=== PATIENT | male | born 1990 | race Caucasian/White ===

== ENCOUNTER → 2020-04-17 08:51 | Outpatient (BNVA) | payer BC, SELFPAY | PROVIDERS: PCP Nurse Practitioner Family; Visit Provider Urology | DX: Z76.89 Persons encountering health services in other specified circumstances (principal) ==

== ENCOUNTER 2020-08-04 08:24 | Outpatient (REF) | payer BC, SELFPAY ==
[2020-08-04 12:21] LABS: Alanine Aminotransferase 9 U/L (0-40); Albumin Level 4.7 g/dL (3.5-5.0); Alkaline Phosphatase 35 U/L (39-117); Anion Gap 12 (12-20); Aspartate Amino Transferase 16 U/L (5-37); Bilirubin Total 0.5 mg/dL (0.0-1.0); Blood Urea Nitrogen 14 mg/dL (9-16); Calcium 9.4 mg/dL (8.4-10.2); Carbon Dioxide 32 mmol/L (22-29); Chloride 104 mmol/L (96-108); Cholesterol 167 mg/dL; Estimated Glomerular Filt Rate > 60; Glucose Fasting 78 mg/dL (60-99); HDL Cholesterol 41 mg/dL; LDL Cholesterol Calculated 107 mg/dl; Potassium 4.9 mmol/L (3.3-5.1); Sodium 143 mmol/L (135-145); Total Protein 7.5 g/dL (6.5-8.0); Triglycerides 95 mg/dL
[2020-08-04 12:28] LABS: TSH reflex Free T4 1.82 uIU/mL (0.32-4.0)
== END 2020-08-04 08:25 | disposition home or self-care (01) ==
LOC: HO.HMGCLDS 08:24
PROVIDERS: PCP Nurse Practitioner Family; Visit Provider Nurse Practitioner Family
DX: Z00.00 Encounter for general adult medical examination without abnormal findings (principal)
CPT/HCPCS: 36415; 80053; 80061; 84443

== ENCOUNTER 2020-10-17 13:24 | Outpatient (REF) | payer BC, SELFPAY ==
[2020-10-17 16:33] LABS: MANUAL DIFF FLAG NO
[2020-10-17 16:36] LABS: Basophils Percent Auto 0.3 % (0-2); Eosinophils Absolute Auto 0.1 X10*3/uL (0.0-0.4); Eosinophils Percent Auto 0.7 % (0-4); Hematocrit 43.7 % (42-52); Hemoglobin 14.5 g/dl (14.0-18.0); Imm Gran Abs Auto 0.02 X10*3/uL (0.00-0.03); Imm Gran Pct Auto 0.3 % (0.0-0.4); Lymphocytes Absolute Auto 2.8 X10*3/uL (1.2-4.9); Lymphocytes Percent Auto 38.1 % (20-40); Mean Corpuscular HGB Conc 33.2 g/dl (31.0-36.0); Mean Corpuscular Hemoglobin 29.7 pg (27.0-33.0); Mean Corpuscular Volume 89.5 fL (80-98); Mean Platelet Volume 12.3 fL (9.4-12.4); Monocytes Absolute Auto 0.7 X10*3/uL (0.1-1.2); Monocytes Percent Auto 9.3 % (2-11); Neutrophils Absolute Auto 3.8 X10*3/uL (2.0-8.3); Neutrophils Percent Auto 51.3 % (45-73); Platelet Count 188 X10*3/uL (160-400); Red Blood Count 4.88 X10*6/uL (4.60-5.80); Red Cell Distribution Width 12.2 % (11.0-16.0); White Blood Count 7.3 X10*3/uL (4.8-10.8)
== END 2020-10-17 13:25 | disposition home or self-care (01) ==
LOC: HO.HMGCLDS 13:24
PROVIDERS: Visit Provider Nurse Practitioner Family
DX: R22.1 Localized swelling, mass and lump, neck (principal)
CPT/HCPCS: 36415; 85025

== ENCOUNTER 2021-12-21 14:08 | Outpatient (REF) | payer BC, SELFPAY ==
--- NOTE | ~2021-12-21 | XR_ITS ---
EXAMINATION: CERVICAL SPINE 3 VIEWS CLINICAL INFORMATION: Cervicalgia. COMPARISON: None. TECHNIQUE: Frontal, lateral and odontoid views are obtained. FINDINGS: Vertebral body heights are normal. There is mild reversal of the normal lordotic curvature. The disc spaces are well-maintained. No acute fracture or spondylolisthesis is seen. The posterior elements are intact. There is no prevertebral soft tissue swelling. The dens and C7-T1 interface are normal. XR/XR cervical spine 3V IMPRESSION: 1. There is mild reversal of the normal lordotic curvature, which can be associated with muscle spasm. 2. No acute fracture or spondylolisthesis is seen. 3. The cervical disc spaces are well-maintained.
== END 2021-12-21 14:09 | disposition home or self-care (01) ==
LOC: HO.HMGCX 14:08
PROVIDERS: PCP Nurse Practitioner Family; Visit Provider Nurse Practitioner Family
DX: M54.2 Cervicalgia (principal)
CPT/HCPCS: 72040

== ENCOUNTER 2022-02-08 16:00 | Outpatient (RCR) | payer BC, SELFPAY ==
--- NOTE | 2022-01-01 15:16 | MHC.PT.EP ---
[facility] [place] Office [place] Office [place] Office [address] Cristóbal Baron [address] [phone] F: [phone] F: [phone] F: [phone] F: [phone] Physical Therapy Plan of Care Date of Evaluation: Date of Surgery: n/a Diagnosis: cervicalgia Assessment: Patient is a 31 year old male presenting to PT with complaints of pain in his neck. Pt reports onset of pain began about 10 years ago due to diving into a tube and forcing his neck into extension. He presents today with impairments in pain, ROM, DNF strength, muscle tightness, and posture. 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 Pt expresses mcc goal of reducing pain, and is motivated to work towards this in PT. Clinical presentation today is most consistent with signs and sx associated with neck pain with likely myofascial component and pt will benefit from skilled PT to address the following problems and impairments noted upon evaluation: pain, ROM, DNF strength, muscle tightness, and posture. These problems limit the patient with the following functional activities: sitting, lifting, turning his head. The prescribed treatment plan of care is medically necessary. Co-morbidities of none were identified and taken into considerations of plan of care. Pt was educated on HEP, role of PT, prognosis, POC. Frequency and Duration: The patient will be seen 2 x week x 4 weeks Short Term Goals: Pt will demonstrate ability to recruit DNF in supine x 5 sec without shaking in 2 weeks. Pt will demonstrate cervical AROM in available range with min to no pain in 2 weeks. Pt will demonstrate improved postural awareness by sitting with biomechanically correct posture without cues throughout session to improve overall postural function in 2 weeks. [facility] Goals: Pt will demonstrate improved NDI score to <5% disability in 4 weeks for improved functional mobility. Pt will demonstrate ability to lift 20# with min to no pain in 4 weeks for improved role at home and in community. Pt will demonstrate ability to sit with min to no pain in 4 weeks for improved QOL and tolerance to work. Treatment Plan: Modalities to reduce pain, spasms and effusion. Manual therapy to restore motion and function. Therapeutic exercise to improve strength and flexibility. Neuromuscular re-education for posture and balance. Therapeutic activities to return to functional activities of daily living. Electronically signed by: Aubree Webber PT, DPT, ATC Please sign and return to therapist. Thank you for your referral.
--- NOTE | 2022-02-08 16:50 | MHC.PT.DC ---
[facility] [place] Office [place] Office [place] Office [address] Cristóbal Baron [address] [phone] F: [phone] F: [phone] F: [phone] F: [phone] Physical Therapy Discharge Report Diagnosis: cervicalgia Date of Surgery: n/a Date of Evaluation: 01/01/22 Date of Discharge: 02/08/22 Treatments to Date: 8 Cancellations to Date: 0 No Shows to Date: 0 Discharge Status: Independent with HEP Recommend MD Follow-up Discharge Summary: Pt has made minimal improvement since start of care but appears to have reached a plateau. He really does not feel relief with any interventions to this point. He still has pain when positioning his head in certain positions and this has not changed much. He is more aware of things that cause him pain and thus avoids these positions and activities and leaving him with functional limitations. A variety of treatment interventions have been trialed unsuccessfully. At this point max benefits of PT have been provided and skilled PT is no longer indicated at this time. 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 Pt is in agreement with today's plan and d/c. Electronically signed by: Aubree Webber, PT, DPT, ATC Please sign and return to therapist. Thank you for your referral.
== END 2022-02-08 16:51 | disposition home or self-care (01) ==
LOC: HO.PTCHIC 16:00
PROVIDERS: PCP Nurse Practitioner Family; Visit Provider Nurse Practitioner Family
DX: M54.2 Cervicalgia (principal)
CPT/HCPCS: 97110; 97140; 97161

== ENCOUNTER 2022-07-26 08:17 | Outpatient (REF) | payer BC, SELFPAY ==
--- NOTE | ~2022-07-26 | XR_ITS ---
EXAMINATION: XR ANKLE, RIGHT XR FOOT, RIGHT CLINICAL INFORMATION: Pain joints right ankle and foot. COMPARISON: None TECHNIQUE: Right ankle is imaged in 2 views. The right foot is imaged in 2 views. A lateral view of the combined right ankle and foot is also included for a total of 5 views. FINDINGS: The right ankle shows no fracture or dislocation or arthropathy. The malleoli are intact and the ankle mortise is symmetric. The talar dome shows no osteochondral lesion. There is no ankle capsular effusion. The retrocalcaneal recess is preserved. The subtalar joint is unremarkable. The midfoot and forefoot shows no fracture or dislocation or arthropathy. No focal joint narrowing or erosive changes. XR/XR ankle RT 2V IMPRESSION: Unremarkable right ankle, right foot.
--- NOTE | ~2022-07-26 | XR_ITS ---
EXAMINATION: XR ANKLE, RIGHT XR FOOT, RIGHT CLINICAL INFORMATION: Pain joints right ankle and foot. COMPARISON: None TECHNIQUE: Right ankle is imaged in 2 views. The right foot is imaged in 2 views. A lateral view of the combined right ankle and foot is also included for a total of 5 views. FINDINGS: The right ankle shows no fracture or dislocation or arthropathy. The malleoli are intact and the ankle mortise is symmetric. The talar dome shows no osteochondral lesion. There is no ankle capsular effusion. The retrocalcaneal recess is preserved. The subtalar joint is unremarkable. The midfoot and forefoot shows no fracture or dislocation or arthropathy. No focal joint narrowing or erosive changes. XR/XR foot RT 2V IMPRESSION: Unremarkable right ankle, right foot.
[2022-07-26 11:33] LABS: Appearance Urine Clear; Color Urine Yellow; Glucose Urine UA Negative (Negative); Leukocyte Esterase Urine Negative (Negative); Nitrite Urine Negative (Negative); PH 5.5 (5.0-9.0); Urine Blood Negative (Negative); Urine Ketones Negative (Negative); Urine Protein Negative (Neg-Trace)
[2022-07-26 11:37] LABS: MANUAL DIFF FLAG NO
[2022-07-26 11:57] LABS: Basophils Percent Auto 0.3 % (0-2); Eosinophils Absolute Auto 0.1 X10*3/uL (0.0-0.4); Eosinophils Percent Auto 1.2 % (0-4); Hematocrit 44.8 % (42.0-52.0); Hemoglobin 14.8 g/dl (14.0-18.0); Imm Gran Abs Auto 0.01 X10*3/uL (0.00-0.03); Imm Gran Pct Auto 0.2 % (0.0-0.4); Lymphocytes Absolute Auto 3.2 X10*3/uL (1.2-4.9); Lymphocytes Percent Auto 54.2 % (20-40); Mean Corpuscular Hemoglobin 29.1 pg (27.0-33.0); Mean Corpuscular Volume 88.2 fL (80.0-98.0); Mean Platelet Volume 12.1 fL (9.4-12.4); Monocytes Absolute Auto 0.4 X10*3/uL (0.1-1.2); Neutrophils Absolute Auto 2.2 x10*3/uL (2.0-8.3); Neutrophils Percent Auto 37.1 % (45-73); Platelet Count 195 X10*3/uL (160-400); Red Blood Count 5.08 X10*6/uL (4.60-5.80); Red Cell Distribution Width 12.4 % (11.0-16.0)
[2022-07-26 14:03] LABS: Alanine Aminotransferase 11 U/L (0-40); Albumin Level 4.5 g/dL (3.5-5.0); Alkaline Phosphatase 50 U/L (39-117); Anion Gap 12 (12-20); Aspartate Amino Transferase 18 U/L (5-37); Bilirubin Total 0.4 mg/dL (0.0-1.0); Blood Urea Nitrogen 13 mg/dL (9-16); Calcium 9.7 mg/dL (8.4-10.2); Carbon Dioxide 30 mmol/L (22-29); Chloride 105 mmol/L (96-108); Cholesterol 207 mg/dL; Estimated Glomerular Filt Rate > 60; Glucose Fasting 86 mg/dL (60-99); HDL Cholesterol 36 mg/dL; LDL Cholesterol Calculated 142 mg/dl; Potassium 4.6 mmol/L (3.3-5.1); Sodium 142 mmol/L (135-145); Total Protein 7.4 g/dL (6.5-8.0); Triglycerides 147 mg/dL
== END 2022-07-26 08:18 | disposition home or self-care (01) ==
LOC: HO.HMGCX 08:17
PROVIDERS: PCP Nurse Practitioner Family; Visit Provider Nurse Practitioner Family
DX: Z00.00 Encounter for general adult medical examination without abnormal findings (principal); M25.571 Pain in right ankle and joints of right foot; M79.671 Pain in right foot
CPT/HCPCS: 36415; 73600; 73620; 80053; 80061; 81003; 84443; 85025

== ENCOUNTER 2023-07-25 10:29 | Outpatient (AMB) | payer BC, SELFPAY ==
--- NOTE | 2023-07-25 10:38 | A.OFFPC_ITS ---
Vital Signs 07/25/23 10:41 Weight 171 lb BP 112/70 Blood Pressure Location Rt brachial Position Sitting Pulse 72 Pulse Source Pulse Oximeter Pulse Oximetry (%) 99 Oxygen Delivery Method Room Air Intake Visit Reasons: annual Pe Intake Note: Patient here for physical exam. no new issues or concerns. Allergies No Known Allergies Allergy (Verified 07/25/23 10:42) Medication List - Last Reconciled 07/25/23 by MILTON Hdez No Known Home Meds Tobacco use date assessed: 07/25/23 Dental Screening Dental Screen Date: 07/25/23 Did you have a dental visit in the last 12 months?: Yes Did you have a dental problem in the last 6 months where you did not have access to dental care?: No Was dental information given to patient?: Patient has dentist HPI annual Pe HPI Details Pt is here for a PE. Will order labs. Pt will be seeing derm in October. [facility] Surgical History History of wisdom tooth extraction Family History Father HTN (hypertension) Hyperlipidemia Mother HTN (hypertension) Maternal Grandmother No problems noted. Maternal Grandfather No problems noted. Paternal Grandmother No problems noted. Paternal Grandfather HTN (hypertension) CVD (cardiovascular disease) Maternal Uncle No problems noted. Paternal Uncle Myocardial infarction Brother No problems noted. Sister No problems noted. Sister No problems noted. Sister No problems noted. Social History Housing: House Alcohol intake: current Alcohol intake frequency: a few times a week Patient Tobacco Use Status: Never used Tobacco e-Cigarette/Vaping Use: Never Used Second Hand Smoke Exposure: No service: Yes Current occupational status: employed Current occupation: [employer] Current occupational exposures/hazards: Yes Cognitive needs: No Hearing needs: No Vision needs: No Questionnaire PHQ-9 Over the last 2 weeks, how often have you been bothered by any of the following problems? 1. Little interest or pleasure in doing things: not at all 2. Feeling down, depressed, or hopeless: not at all 3. Trouble falling or staying asleep, or sleeping too much: not at all 4. Feeling tired or having little energy: not at all 5. Poor appetite or overeating: not at all 6. Feeling bad about yourself - or that you are a failure or have let yourself or your family down: not at all 7. Trouble concentrating on things, such as reading the newspaper or watching television: not at all 8. Moving or speaking so slowly that other people could have noticed. Or the opposite - being so fidgety or restless that you have been moving around a lot more than usual: not at all 9. Thoughts that you would be better off or of hurting yourself in some way: not at all Total score: 0 Depression Screening Interpretation: Negative Depression Screening Done: Yes 26356 - PHQ-9 Billing: Yes Source: Developed by Drs. Vladimir Duong, Cele Fraga, Dejon Vanegas and colleagues, with an educational adenike from [employer]. Thrive Questionnaire Date Thrive assessed: 07/25/23 I am a: Patient Within the past 12 months, did the food you bought not last and you didn't have the money to get more?: Never true Within the past 12 months, did you worry whether your food would run out before you got money to buy more?: Never true Do you have trouble paying for medicines?: No Do you have trouble getting transportation to medical appointments?: No Do you have trouble paying your heating and electricity bill?: No Do you have trouble taking care of your child, family member or friend?: No Do you have trouble with day-to-day activities such as bathing, preparing meals, shopping, managing finances, etc.?: No Are you currently unemployed and looking for a job?: No Are you interested in more education?: No THRIVE Score: 0 AUDIT C Alcohol Use Questionnaire (AUDIT-C) 1. How often do you have a drink containing alcohol?: 2-4 times a month 2. How many drinks containing alcohol do you have on a typical day when you are drinking?: 3 or 4 3. How often do you have six or more drinks on one occasion?: Never Total Score: 3 YESENIA-7 AMB Questionnaire YESENIA-7 Date YESENIA - 7 assessed: 07/25/23 Feeling nervous, anxious, or on edge: 0 = Not at all Not being able to stop or control worryin = Not at all Worrying too much about different things: 0 = Not at all Trouble relaxin = Not at all Being so restless that it is hard to sit still: 0 = Not at all Becoming easily annoyed or irritable: 0 = Not at all Feeling afraid as if something awful might happen: 0 = Not at all Total YESENIA-7 score (0-4 normal; 5-9 mild; 10-14 moderate; 15-21 severe): 0 Source: Developed by Drs. Vladimir Duong, Cele Fraga, Dejon Vanegas and colleagues, with an educational adenike from [employer]. YESENIA-7 Assessment Billing YESENIA-7 Assessment Tool: YESENIA-7 Assessment 58786 Review of Systems Const Denies chills and Denies fever(s) Eyes Denies blurry vision ENT Denies vertigo, Denies dizziness and Denies sore throat Card Denies chest pain at rest, Denies chest pain with activity, Denies diaphoresis, Denies dyspnea and Denies dyspnea on exertion Resp Denies cough, Denies dyspnea, Denies dyspnea on exertion and Denies wheezing GI Denies abdominal pain, Denies melena, Denies hematochezia, Denies constipation, Denies diarrhea and Denies loose stools Denies hematuria Musc Denies numbness and Denies tingling Skin/Breast Denies lesions Neuro Denies vertigo, Denies dizziness, Denies numbness and Denies tingling Psych Denies anxiety, Denies depression, Denies homicidal ideation, Denies suicidal ideation and Denies other (substance abuse) Aller/Immun Denies wheezing Physical exam (Primary Care) Vital Signs: Last Vital Signs Pulse 72 07/25/23 10:41 BP 112/70 07/25/23 10:41 Pulse Ox 99 07/25/23 10:41 Oxygen Delivery Method Room Air 07/25/23 10:41 Tobacco/Smoking Status: Tobacco use Status Tobacco use date assessed 07/25/23 07/25/23 10:44 Patient Tobacco Use Status Never used Tobacco 07/25/23 10:40 e-Cigarette/Vaping Use Never Used 07/25/23 10:40 Depression Screening Interpretation: Negative Thrive Assessment: Date of Thrive Assessment Date Thrive assessed 07/22/22 07/25/23 10:40 Const General: cooperative Nutritional Appearance: well nourished Orientation/consciousness: patient oriented x3 HENMT Head: Yes normal to inspection, Yes normocephalic and Yes atraumatic Ears: TM's normal bilaterally Eyes General: appearance normal, both eyes and all related structures Alignment and Position: alignment normal and position normal Neck Neck: Yes normal visual inspection and Yes no lymphadenopathy Thyroid: Thyroid normal Resp Effort & Inspection: normal respiratory effort Auscultation: clear to auscultation bilaterally Cardio Rate: regular rate Rhythm: regular rhythm Heart sounds: S1 normal heart sound present, S2 normal heart sound present and no murmurs GI Palpation (GI): Soft to palpation and nontender Auscultation: normal bowel sounds Male General Exam: Yes normal external exam Penis: normal penis Scrotum: scrotum normal, testes descended bilaterally and no inguinal hernias Testes: no testicular mass Skin Other: papular lesion to inferior right aspect of crown, scalp cyst to crown region Rashes: no rashes Neuro General: patient oriented x3, moves all extremities, no focal motor deficits and deep tendon reflexes 2+ bilaterally Romberg Test: Negative Psych Appearance: grossly normal Mental Status: mental status grossly normal Speech and movement: Normal speech and movement present Affect: normal affect Attitude: cooperative Thought process: Normal thought process present Thought content: Normal thought content present Insight: Good insight present (Psych) Judgement: Good judgement present (Psych) Assessment and Plan Assessment & Plan (1) Physical exam: Code(s): Z00.00 - Encounter for general adult medical examination without abnormal findings Plan: Labs ordered Plan The patient agreed to the use of a certified medical transcriptionist for this encounter. Scribed for MILTON Cha by Yolanda Arrington certified medical transcriptionist, on 07/25/2023 at 10:45 EST. Orders: Orders Complete Blood Count Auto Diff Today Z00.00 - Encounter for general adult medical examination without abnormal findings TSH reflex Free T4 Today Z00.00 - Encounter for general adult medical examination without abnormal findings UA CC w/rflx Micro + Cult Today Z00.00 - Encounter for general adult medical examination without abnormal findings Lipid Panel Today Z00.00 - Encounter for general adult medical examination without abnormal findings Comprehensive Wesley. Panel Fast Today Z00.00 - Encounter for general adult medical examination without abnormal findings Coding Level of Care Code Est Pt Prev Care 18-39y(04106) Diagnoses Physical exam Z00.00 Additional Codes YESENIA-7 Assessment Billing - YESENIA-7 Assessment Tool: YESENIA-7 Assessment [id number] ([id number])
[2023-07-25 10:41] VITALS: BP 112/70; PULSE 72; O2SAT 99
== END 2023-07-25 10:57 | disposition home or self-care (01) ==
PROVIDERS: Visit Provider Nurse Practitioner Family
DX: Z00.00 Encounter for general adult medical examination without abnormal findings (principal)
CPT/HCPCS: 99395

== ENCOUNTER 2023-08-16 10:52 | Outpatient (REF) | payer BC, SELFPAY ==
[2023-08-16 13:33] LABS: MANUAL DIFF FLAG NO
[2023-08-16 13:38] LABS: Basophils Percent Auto 0.4 % (0-2); Eosinophils Absolute Auto 0.1 X10*3/uL (0.0-0.4); Eosinophils Percent Auto 1.6 % (0-4); Hematocrit 41.5 % (42.0-52.0); Hemoglobin 13.7 g/dl (14.0-18.0); Lymphocytes Absolute Auto 2.9 X10*3/uL (1.2-4.9); Lymphocytes Percent Auto 50.8 % (20-40); Mean Corpuscular Hemoglobin 29.7 pg (27.0-33.0); Mean Platelet Volume 12.8 fL (9.4-12.4); Monocytes Absolute Auto 0.4 X10*3/uL (0.1-1.2); Neutrophils Absolute Auto 2.3 x10*3/uL (2.0-8.3); Neutrophils Percent Auto 40.2 % (45-73); Platelet Count 179 X10*3/uL (160-400); Red Blood Count 4.61 X10*6/uL (4.60-5.80); Red Cell Distribution Width 12.8 % (11.0-16.0); White Blood Count 5.6 X10*3/uL (4.8-10.8)
[2023-08-16 13:45] LABS: Appearance Urine Clear; Color Urine Yellow; Glucose Urine UA Negative (Negative); Leukocyte Esterase Urine Negative (Negative); Nitrite Urine Negative (Negative); PH 8.5 (5.0-9.0); Specific Gravity - Urine 1.025 (1.005-1.025); Urine Blood Negative (Negative); Urine Ketones Negative (Negative); Urine Protein Negative (Neg-Trace)
[2023-08-16 13:54] LABS: Alanine Aminotransferase 12 U/L (0-40); Albumin Level 4.5 g/dL (3.5-5.0); Alkaline Phosphatase 47 U/L (39-117); Anion Gap 9 (12-20); Aspartate Amino Transferase 17 U/L (5-37); Bilirubin Total 0.8 mg/dL (0.0-1.0); Blood Urea Nitrogen 12 mg/dL (9-16); Calcium 9.5 mg/dL (8.4-10.2); Carbon Dioxide 30 mmol/L (22-29); Chloride 105 mmol/L (96-108); Cholesterol 175 mg/dL (<200); Estimated Glomerular Filt Rate > 60; Glucose Fasting 83 mg/dL (60-99); HDL Cholesterol 37 mg/dL (>40); LDL Cholesterol Calculated 113 mg/dL (<100); Potassium 3.8 mmol/L (3.3-5.1); Sodium 140 mmol/L (135-145); Total Protein 7.6 g/dL (6.5-8.0); Triglycerides 125 mg/dL (<150)
[2023-08-16 14:11] LABS: TSH reflex Free T4 1.47 uIU/mL (0.32-4.0)
== END 2023-08-16 10:53 | disposition home or self-care (01) ==
LOC: HO.HMGCLDS 10:52
PROVIDERS: PCP Nurse Practitioner Family; Visit Provider Nurse Practitioner Family
DX: Z00.00 Encounter for general adult medical examination without abnormal findings (principal)
CPT/HCPCS: 36415; 80053; 80061; 81003; 84443; 85025

== ENCOUNTER 2024-10-25 15:51 | Outpatient (AMB) | payer BC, SELFPAY ==
[2024-10-25 15:52] VITALS: BP 120/84; PULSE 58; O2SAT 97; BMI 20.7
--- NOTE | 2024-10-25 15:52 | A.OFFPC_ITS ---
Vital Signs 10/25/24 15:52 Height 5 ft 9 in Weight 140 lb 8 oz BMI 20.7 BP 120/84 Blood Pressure Location Lt brachial Position Sitting Pulse 58 Pulse Source Pulse Oximeter Pulse Oximetry (%) 97 Oxygen Delivery Method Room Air Intake Visit Reasons: PE w/ labs Allergies No Known Allergies Allergy (Verified 10/25/24 15:53) Tobacco use date assessed: 10/25/24 Dental Screening Dental Screen Date: 10/25/24 Did you have a dental problem in the last 6 months where you did not have access to dental care?: No HPI PE w/ labs HPI Details History of Present Illness The patient is a 34-year-old male presenting with concerns related to a physical exam. During the consultation, he reflects on multiple health issues, listing symptoms such as chest pain, shortness of breath, abdominal pain, blood in stool, constipation, diarrhea, urinary issues, and any signs of suicidality or homicidality as potential areas to explore. However, there is no indication th cheli symptoms are currently active. His prior mental health treatment is discussed, noting a forthcoming discontinuation of therapy based on perceived inefficacy and a positive outlook supported by a strong social network, despite work-life balance challenges. His methodology for sustaining mental health includes reliance on social supports and his own resilience, although professional therapy is deemed non-essential at present. The patient schedules fasting lab tests, switching the focus from anticipatory symptom monitoring to general wellness. Health Maintenance - Organized fasting labs for routine scr eening and health assessment Social History - Work-life balance concerns, stating wo rk as a significant factor - Plans to discontinue therapy but has s mainor social support - Manages potential workplace stress wit h a good network of friends Review of Systems - General: Denies active symptoms of bhargav st pain, shortness of breath, abdominal pain, blood in stool, constipation, diarrhea, and urinary issues - Psychiatric: Denies current suicidalit y or homicidality Physical Exam General: Cooperative, healthy appearing, comfortable, no acute distress and well developed Orientation: Patient oriented x3 Limitations: No limitations Head: Normal to inspection Ears: Hearing grossly normal bilaterally Nose: Normal external nose present Face and sinus: Normal facial exam Eyes: Appearance normal, both eyes and all related structures Neck: Normal visual inspection and Yes full ROM Respiratory: Normal respiratory effort and able to speak in complete sentences. Clear to auscultation bilaterally Cardiovascular: Regular rate and rhythm. Normal S1 and S2 GI: Normal to inspection. Soft to palpation and nontender Skin: No rashes or lesions noted Neuro: Patient oriented x3 Extremities: Normal to inspection Results - Labs: Fasting labs ordered. Plan The patient's management plan is centered on completing the fasting labs to assess his current health status thoroughly. There are no active symptoms requiring urgent intervention, but comprehensive wellness evaluation remains a priority. I highlighted the importance of work-life balance in maintaining mental health, supporting his decision to strengthen his social connections as a vital resource. He acknowledges the need to reach out for professional help should his self-tended strategies prove inadequate. No further therapy is currently deemed necessary, but reassessment is suggested if future circumstances change. Discussion Notes I discussed with the patient his current health goals and the importance of his lab results, which will provide critical data for ongoing care. We reviewed his decision to end therapy, emphasizing his strong social support as an alternative for mental well-being maintenance. The conversation included an acknowledgment of potential future needs for re-evaluation depending on his circumstances or if new symptoms arise. We confirmed the necessity of fasting for lab accuracy, with anticipatory guidance to seek further support if needed. Patient Instructions - Complete fasting before lab work - Maintain a healthy work-life balance - Utilize social support as necessary - Contact for further help if experienci ng new symptoms or mental health changes [facility] Medical History Pilar cyst of scalp Surgical History History of wisdom tooth extraction Family History Father HTN (hypertension) Hyperlipidemia Mother HTN (hypertension) Maternal Grandmother No problems noted. Maternal Grandfather No problems noted. Paternal Grandmother No problems noted. Paternal Grandfather HTN (hypertension) CVD (cardiovascular disease) Maternal Uncle No problems noted. Paternal Uncle Myocardial infarction Brother No problems noted. Sister No problems noted. Sister No problems noted. Sister No problems noted. Social History Housing: House Alcohol intake: current Alcohol intake frequency: a few times a week Patient Tobacco Use Status: Never used Tobacco e-Cigarette/Vaping Use: Never Used Second Hand Smoke Exposure: No service: Yes Current occupational status: employed Current occupation: [employer] Current occupational exposures/hazards: Yes Cognitive needs: No Hearing needs: No Vision needs: No Questionnaire PHQ-9 Over the last 2 weeks, how often have you been bothered by any of the following problems? 1. Little interest or pleasure in doing things: not at all 2. Feeling down, depressed, or hopeless: not at all 3. Trouble falling or staying asleep, or sleeping too much: several days 4. Feeling tired or having little energy: not at all 5. Poor appetite or overeating: not at all 6. Feeling bad about yourself - or that you are a failure or have let yourself or your family down: not at all 7. Trouble concentrating on things, such as reading the newspaper or watching television: not at all 8. Moving or speaking so slowly that other people could have noticed. Or the opposite - being so fidgety or restless that you have been moving around a lot more than usual: not at all 9. Thoughts that you would be better off or of hurting yourself in some way: not at all Total score: 1 Depression Screening Interpretation: Negative Depression Screening Done: Yes 38632 - PHQ-9 Billing: Yes Source: Developed by Drs. Vladimir Duong, Cele Fraga, Dejon Vanegas and colleagues, with an educational adenike from [employer]. Thrive Questionnaire Date Thrive assessed: 10/25/24 I am a: Patient What is your living situation today?: I have a steady place to live Within the past 12 months, did the food you bought not last and you didn't have the money to get more?: Never true Within the past 12 months, did you worry whether your food would run out before you got money to buy more?: Never true Do you have trouble paying for medicines?: No Do you have trouble getting transportation to medical appointments?: No Do you have trouble paying your heating and electricity bill?: No Do you have trouble taking care of your child, family member or friend?: No Do you have trouble with day-to-day activities such as bathing, preparing meals, shopping, managing finances, etc.?: No Are you currently unemployed and looking for a job?: No Are you interested in more education?: No Please select the resources that you would like help with: None Currently or been in a relationship where the following occur: No concerns reported THRIVE Score: 0 AUDIT C Alcohol Use Questionnaire (AUDIT-C) 1. How often do you have a drink containing alcohol?: 2-4 times a month 2. How many drinks containing alcohol do you have on a typical day when you are drinking?: 3 or 4 3. How often do you have six or more drinks on one occasion?: Never Total Score: 3 Score Reviewed/Action Taken: Yes YESENIA-7 AMB Questionnaire YESENIA-7 Date YESENIA - 7 assessed: 10/25/24 Feeling nervous, anxious, or on edge: 0 = Not at all Not being able to stop or control worryin = Not at all Worrying too much about different things: 0 = Not at all Trouble relaxin = Not at all Being so restless that it is hard to sit still: 0 = Not at all Becoming easily annoyed or irritable: 0 = Not at all Feeling afraid as if something awful might happen: 0 = Not at all Total YESENIA-7 score (0-4 normal; 5-9 mild; 10-14 moderate; 15-21 severe): 0 Source: Developed by Drs. Vladimir Duong, Cele Fraga, Dejon Vanegas and colleagues, with an educational adenike from [employer]. YESENIA-7 Assessment Billing YESENIA-7 Assessment Tool: YESENIA-7 Assessment 97582 Physical exam (Primary Care) Vital Signs: Last Vital Signs Pulse 58 10/25/24 15:52 BP 120/84 10/25/24 15:52 Pulse Ox 97 10/25/24 15:52 Oxygen Delivery Method Room Air 10/25/24 15:52 BMI result Body Mass Index 20.7 Tobacco/Smoking Status: Tobacco use Status Tobacco use date assessed 10/25/24 10/25/24 15:54 Patient Tobacco Use Status Never used Tobacco 10/25/24 15:53 e-Cigarette/Vaping Use Never Used 10/25/24 15:53 PHQ-9: PHQ-9 Score PHQ-9: Total score 1 10/25/24 15:54 Depression Screening Interpretation: Negative Thrive Assessment: Date of Thrive Assessment Date Thrive assessed 10/25/24 10/25/24 15:54 Currently or been in a relationship where the following occur: No concerns reported Coding Level of Care Code Est Pt Prev Care 18-39y(77319) Diagnoses Physical exam Z00. Additional Codes YESENIA-7 Assessment Billing - YESENIA-7 Assessment Tool: YESENIA-7 Assessment 76243 ([id number]) PHQ-9 - 95647 - PHQ-9 Billing: Yes ([id number]) Assessment & Plan Assessment & Plan (1) Physical exam: Code(s): Z00.00 - Encounter for general adult medical examination without abnormal findings Category: Medical Plan . Orders: Orders Complete Blood Count Auto Diff Today Z00.00 - Encounter for general adult medical examination without abnormal findings TSH reflex Free T4 Today Z00.00 - Encounter for general adult medical e xamination without abnormal findings Comprehensive [place]. Panel Fast Today Z00.00 - Encounter for general adult medical examination without abnormal findings UA CC w/rflx Micro + Cult Today Z00.00 - Encounter for general adult medical examination without abnormal findings Lipid Panel Today Z00.00 - Encounter for general adult medical examination without abnormal findings
--- OUTSIDE RECORDS SUMMARY | 2024-10-25 18:24 | XMS_ITS | Patient Health Record ---
Author Organization [facility] Address [address] [place] [phone] Support Name Relationship Address Phone ABY LEE Emergency Contact [address] [place] [address] TERE LEE Guarantor Unknown [phone] REASON FOR REFERRAL No Information MEDICATIONS Medication SIG (Take, Route, Fr equency, Duration) Notes Start Date End Date Status Meloxicam 15 MG 1 tablet Orally Once a day for 30 day(s) 04/08/2023 Active PLAN OF TREATMENT Pending Test Test Name Order Date XRAY *Wrist Lt Complete 04/08/2023 Insurance Providers Payer Name Payer Address Payer Phone Subscriber Number Group Number Insured Name Patient Relationship to Insured Coverage Start Date Coverage End Date [facility] [address] [place] [address] [id number] TERE LEE Self - patient is the insured [employer] [address] [place] [address] [id number] TERE LEE Self - patient is the insured MEDICAL (GENERAL) HISTORY Surgical History Surgery Date(Month/Year)
--- OUTSIDE RECORDS SUMMARY | 2024-10-25 18:24 | XMS_ITS | Continuity of Care Document ---
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 It does not include entries that were removed or entered in error. Problem Status Onset Date Problem Type Date of Resolution Comme nts Source [facility] Active Condition DoD Allergies, Adverse Reactions, Alerts Combined list of allergies from Department of Defense and Veterans Affairs facilities. It does not include entries that were removed or entered in error. Substance Category Reaction Severity Reaction type Status Date Reported Comments Source No Known Allergies Drug allergy (disorder) active 12/22/2017 [facility] Immunizations Combined list of available immunizations from the Department of Defense and Veterans Affairs facilities. 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 Status Comments Source typhoid vaccine, parenteral 2022 SNEHA Olson bird, left (delt oid) [id number] sanofi pasteur complet ed typhoid vaccine, parentera l 06/04/23 Given [id number]-[id number] 39 AMDS influenza, injectable, quadrivalent- pf 2021 [id number] 150 GlaxoSmithKli ne complet ed influenza , injectabl e, quadrival ent-pf 05/11/22 Given Ambulat ory Pharmac y COVID Vaccine Moderna 2020 [id number] 207 complet ed COVID Vaccine Moderna 06/07/21 Given Ambulat ory Pharmac y typhoid Vi capsular polysaccharid e vac 2020 [id number] 101 sanofi pasteur complet ed typhoid Vi capsular polysacch aride vac 05/12/21 Given Ambulat ory Pharmac y influenza virus vaccine, inactivated 2020 [id number] 88 Seqirus complet ed influenza virus vaccine, inactivat ed 05/10/21 Given Ambulat ory Pharmac y tetanus, diphtheria, acellular pertu is 2020 [id number] 115 sanofi pasteur complet ed tetanus, diphtheri a, acellular pertussis 12/06/20 Given Ambulat ory Pharmac y COVID Vaccine Moderna 2020 [id number] 207 complet ed COVID Vaccine Moderna 08/29/20 Given Ambulat ory Pharmac y COVID Vaccine Moderna 2020 [id number] 207 complet ed COVID Vaccine Moderna 07/28/20 Given Ambulat ory Pharmac y influenza, live, intranasal,qu adrivalent 2019 [id number] 149 Seqirus complet ed influenza , live, intranasa l,quadriv alent 05/11/20 Given Ambulat ory Pharmac y meningococcal A,C,Y,W-135 (MCV4P) 2019 [id number] 114 sanofi pasteur complet ed meningoco ccal A,C,Y,W-1 35 (MCV4P) 07/15/19 Given Ambulat ory Pharmac y influenza, injectable, quadrivalent- pf 2018 [id number] 150 Seqirus complet ed influenza , injectabl e, quadrival ent-pf 05/23/19 Given Ambulat ory Pharmac y typhoid Vi capsular polysaccharid e vac 2018 [id number] 101 sanofi pasteur complet ed typhoid Vi capsular polysacch aride vac 05/23/19 Given Ambulat ory Pharmac y influenza, injectable, quadrivalent- pf 2017 [id number] 150 Seqirus complet ed influenza , injectabl e, quadrival ent-pf 03/30/18 Given Ambulat ory Pharmac y Influenza, injectable, quadrivalent, preservative free 1 2017 [id number] 150 Seqirus (SEQ) comple t ed Influenza , injectabl e, quadrival ent, preservat junior free DoD measles, mumps and rubella virus vaccine 0 2017 03 () Not Given measles, mumps and rubella virus vaccine DoD measles virus vaccine 0 2017 05 () Not Given measles virus vaccine DoD rubella virus vaccine 0 2017 06 () Not Given rubella virus vaccine DoD mumps virus vaccine 0 2017 07 () Not Given mumps virus vaccine DoD varicella virus vaccine 0 2017 21 () Not Given varicella virus vaccine DoD hepatitis B vaccine, unspecified formulation 0 2017 45 () Not Given hepatitis B vaccine, unspecifi ed formulati on DoD hepatitis A vaccine, adult dosage 0 2017 52 () Not Given hepatitis A vaccine, adult dosage DoD Influenza, inj, MDCK, quadrivalent- pf 2016 [id number] 171 Seqirus complet ed Influenza , inj, MDCK, quadrival ent-pf 06/04/17 Given Ambulat ory Pharmac y Influenza, injectable, Madin [place] Canine Kidney, preservative free, quadrivalent 7 2016 [id number] 171 Seqirus (SEQ) comple t ed Influenza , injectabl e, Madin [place] Canine Kidney, preservat junior free, quadrival ent DoD typhoid Vi capsular polysaccharid e vac 2016 [id number] 101 sanofi pasteur complet ed typhoid Vi capsular polysacch aride vac 08/08/16 Given Ambulat ory Pharmac y typhoid Vi capsular polysaccharid e vaccine 2 2016 L1255 101 Sanofi Pasteur (PMC) complet ed typhoid Vi capsular polysacch aride vaccine DoD influenza, seasonal, injectable-pf 2015 [id number] 140 Seqirus complet ed influenza , seasonal, injectabl e-pf 05/08/16 Given Ambulat ory Pharmac y Influenza, seasonal, injectable, preservative free 6 2015 [id number] 140 Seqirus (SEQ) comple t ed Influenza , seasonal, injectabl e, preservat junior free DoD influenza, seasonal, injectable-pf 2014 [id number] 140 CSL Behring complet ed influenza , seasonal, injectabl e-pf 04/06/15 Given Ambulat ory Pharmac y Influenza, seasonal, injectable, preservative free 5 2014 [id number] 140 [employer]SL [employer]. (CSL) complet ed Influenza , seasonal, injectabl e, preservat junior free DoD Human Papillomaviru s,quadrivalen t(HPV4) 2014 [id number] 62 Merck & Transport Pharmaceuticals Inc complet ed Human Papilloma virus,cece drivalent (HPV4) 10/31/14 Given Ambulat ory Pharmac y human papilloma virus vaccine, quadrivalent 3 2014 [id number] 62 Merck (MSD) complet ed human papilloma virus vaccine, quadrival ent DoD meningococcal A,C,Y,W-135 (MCV4P) 2014 [id number] 114 sanofi pasteur complet ed meningoco ccal A,C,Y,W-1 35 (MCV4P) 08/02/14 Given Ambulat ory Pharmac y typhoid Vi capsular polysaccharid e vac 2014 G0916-6 101 sanofi pasteur complet ed typhoid Vi capsular polysacch aride vac 08/02/14 Given Ambulat ory Pharmac y typhoid Vi capsular polysaccharid e vaccine 1 2014 D7467-1 101 Sanofi Pasteur (PMC) complet ed typhoid Vi capsular polysacch aride vaccine DoD meningococcal polysaccharid e (groups A, C, Y and W-135) diphtheria toxoid conjugate vaccine (MCV4P) 2 2014 [id number] 114 Sanofi Pasteur (PMC) complet ed meningoco ccal polysacch aride (groups A, C, Y and W-135) diphtheri a toxoid conjugate vaccine (MCV4P) DoD Human Papillomaviru s,quadrivalen t(HPV4) 2013 [id number] 62 Merck & Company Inc complet ed Human Papilloma virus,cece drivalent (HPV4) 05/29/14 Given Ambulat ory Pharmac y human papilloma virus vaccine, quadrivalent 0 2013 [id number] 62 Merck (MSD) complet ed human papilloma virus vaccine, quadrival ent DoD varicella virus vaccine 2013 [id number] 21 Merck & Company Inc complet ed varicella virus vaccine 04/29/14 Given Ambulat ory Pharmac y measles/mumps /rubella virus vaccine 2013 [id number] 03 Merck & Company Inc complet ed measles/m umps/rube lla virus vaccine 04/29/14 Given Ambulat ory Pharmac y measles, mumps and rubella virus vaccine 2 2013 [id number] 03 Merck (MSD) complet ed measles, mumps and rubella virus vaccine DoD varicella virus vaccine 2 2013 [id number] 21 Merck (MSD) complet ed varicella virus vaccine DoD influenza, seasonal, injectable-pf 2013 [id number] 140 Novartis Pharmaceutica ls complet ed influenza , seasonal, injectabl e-pf 04/09/14 Given Ambulat ory Pharmac y Influenza, seasonal, injectable, preservative free 0 2013 [id number] 140 Novartis Pharmaceutica l Francesca. (NOV) complet ed Influenza , seasonal, injectabl e, preservat junior free DoD varicella virus vaccine 2013 [id number] 21 Merck & Company Inc complet ed varicella virus vaccine 03/28/14 Given Ambulat ory Pharmac y Human Papillomaviru s,quadrivalen t(HPV4) 2013 [id number] 62 Merck & Company Inc complet ed Human Papilloma virus,cece drivalent (HPV4) 03/28/14 Given Ambulat ory Pharmac y poliovirus vaccine, inactivated 2013 K1330 10 sanofi pasteur complet ed polioviru s vaccine, inactivat ed 03/28/14 Given Ambulat ory Pharmac y measles/mumps /rubella virus vaccine 2013 [id number] 03 Merck & Company Inc complet ed measles/m umps/rube lla virus vaccine 03/28/14 Given Ambulat ory Pharmac y measles, mumps and rubella virus vaccine 1 2013 [id number] 03 Merck (MSD) complet ed measles, mumps and rubella virus vaccine DoD poliovirus vaccine, inactivated 1 2013 K1330 10 Sanofi Pasteur (PMC) complet ed polioviru s vaccine, inactivat ed DoD varicella virus vaccine 1 2013 [id number] 21 Merck (MSD) complet ed varicella virus vaccine DoD human papilloma virus vaccine, quadrivalent 0 2013 [id number] 62 Merck (MSD) complet ed human papilloma virus vaccine, quadrival ent DoD tuberculin purified protein derivative 2013 146874 96 [facility] complet ed tuberculi n purified protein derivativ e 01/14/14 Given Ambulat ory Pharmac y influenza, seasonal, injectable-pf 2012 [id number] 140 Unknown complet ed influenza , seasonal, injectabl e-pf 04/24/13 Given Ambulat ory Pharmac y Influenza, seasonal, injectable, preservative free 0 2012 [id number] 140 Unknown (UNK) comple t ed Influenza , seasonal, injectabl e, preservat junior free DoD influenza, seasonal, injectable-pf 2011 [id number] 140 CSL Behring complet ed influenza , seasonal, injectabl e-pf 04/15/12 Given Ambulat ory Pharmac y Influenza, seasonal, injectable, preservative free 0 2011 [id number] 140 [facility] [employer] Inc. (CSL) complet ed Influenza , seasonal, injectabl e, preservat junior free DoD hepatitis A-hepatitis B vaccine 2011 UNK 104 GlaxoSmithKli ne complet ed hepatitis A-hepatit is B vaccine 09/04/11 Given Ambulat ory Pharmac y hepatitis A and hepatitis B vaccine 3 2011 UNK 104 SmithKline (SKB) complet ed hepatitis A and hepatitis B vaccine DoD influenza virus vaccine, live 2010 [id number] 111 [employer] (MiME) Inc comple t ed influenza virus vaccine, live 03/05/11 Given Ambulat ory Pharmac y hepatitis A-hepatitis B vaccine 2010 [id number] 3CA 104 GlaxoSmithKli ne complet ed hepatitis A-hepatit is B vaccine 03/05/11 Given Ambulat ory Pharmac y yellow fever vaccine 2010 [id number] 37 sanofi pasteur complet ed yellow fever vaccine 03/05/11 Given Ambulat ory Pharmac y yellow fever vaccine 0 2010 [id number] 37 Sanofi Pasteur (PMC) complet ed yellow fever vaccine DoD hepatitis A and hepatitis B vaccine 2 2010 [id number] 3CA 104 SmithKline (SKB) complet ed hepatitis A and hepatitis B vaccine DoD influenza virus vaccine, live, attenuated, for intranasal use 0 2010 [id number] 111 [employer] (MED) complet ed influenza virus vaccine, live, attenuate d, for intranasa l use DoD hepatitis A-hepatitis B vaccine 2010 [id number] 3CA 104 GlaxoSmithKli ne complet ed hepatitis A-hepatit is B vaccine 01/29/11 Given Ambulat ory Pharmac y hepatitis A and hepatitis B vaccine 1 2010 [id number] 3CA 104 SmithKline (SKB) complet ed hepatitis A and hepatitis B vaccine DoD tetanus, diphtheria, acellular pertu is 2010 [id number] 115 sanofi pasteur complet ed tetanus, diphtheri a, acellular pertussis 01/27/11 Given Ambulat ory Pharmac y tetanus toxoid, reduced diphtheria toxoid, and acellular pertu is vaccine, adsorbed 0 2010 [id number] 115 Sanofi Pasteur (PMC) complet ed tetanus toxoid, reduced diphtheri a toxoid, and acellular pertussis vaccine, adsorbed DoD tetanus, diphtheria, acellular pertu is 2009 UNK 115 complet ed tetanus, diphtheri a, acellular pertussis 12/26/09 Given Ambulat ory Pharmac y tetanus toxoid, reduced diphtheria toxoid, and acellular pertu is vaccine, adsorbed 0 2009 UNK 115 (TRN) complet ed tetanus toxoid, reduced diphtheri a toxoid, and acellular pertussis vaccine, adsorbed DoD meningococcal A,C,Y,W-135 (MCV4P) 2007 UNK 114 complet ed meningoco ccal A,C,Y,W-1 35 (MCV4P) 02/27/08 Given Ambulat ory Pharmac y meningococcal polysaccharid e (groups A, C, Y and W-135) diphtheria toxoid conjugate vaccine (MCV4P) 0 2007 UNK 114 (TRN) complet ed meningoco ccal polysacch aride (groups A, C, Y and W-135) diphtheri a toxoid conjugate vaccine (MCV4P) [facility] Results Combined list of recent chemistry, hematology and other laboratory results from Department of Defense and Veterans Affairs, ranging from 15 months to all on record, depending upon the facility. Order Name Results Value Reference Range Date Interpretation Specimen Comments Source Infectiou s Disease HIV-1/O/2 Non-Reac tive 1 (03/06/24 1:25 PM) 03/06 N Interpretiv e Data: INTERPRETAT ION: This method is a screening procedure for the detection of HIV p24 Antigen and Antibodies to HIV-1, including Group O, and/or HIV-2. NON-REACTIV E: HIV-1 antigen and HIV-1 / HIV-2 antibodies were not detected. No laboratory evidence of HIV infection. A negative test result does not exclude the possibility of exposure to or infection with HIV. HIV antibodies and/or p24 antigen may be undetectabl e in some stages of the infection and in some clinical conditions. If acute HIV infection is suspected, consider submitting another specimen to a reference laboratory for HIV-1 RNA. SCREEN REACTIVE - CONFIRMATIO N TO FOLLOW: Possible presence of HIV-1antibo dies, HIV-2 antibodies and/or HIV-1 p24 antigen. Specimen will reflex to the confirmatio n testing that fulfills the Center for Disease Control and Prevention' s HIV diagnostic algorithm. Refer to [facility] Lab Guide for additional information : [email or web address]/ [email or web address] x Testing performed by Cristy colin. [facility]00[facility]U [facility] EPIL[facility] Miscellan eous Sendouts Repository Sample Received (03/06/24 1:25 PM) 03/06 N [facility] Encounters Combined list of: 1) Encounters from Department of [facility] Affairs facilities going backup to the last 18 months, not all [place] inpatient encounters are included; 2) Encounters from the Department of Defense facilities going backup to 280 months. Location Location Details Encounter Type Encounter Number Reason For Visit Attending Provider ADM Date DC Date [place] [address]([facility] OUTPATIENT [id number] STD CHECK SHANNON MCCLELLAND 02/01 [facility] [place] [place] [address]([facility]) [place] [address]([facility]) OUTPATIENT [id number] rash to genital area SHANNON MCCLELLAND 02/10 [facility] Limitations [facility] [place] [address] [place] [place] [address] OUT[facility] [id number] Penile lesion KVNG CAMPO 03/21 [facility] w/o Limitations [facility] [place] [address] [place] [address]([facility] Antonio Soni) OUTPATIENT [id number] f/u dermato MARY Arias 03/25 [facility] w/o Limitations [facility] [place] [address]([facility] Dior [facility]) [place] [address]([facility]) TELE CONSULT [id number] Notes Entered by: LAKIA COHEN 05 Apr 2014 1252 ------- ------- ------- ------- -- Pt ran out of prescri bed meds half way through month. KVNG CAMPO 04/05 Referred for Appointment [place] [place] [address]([facility]) [facility] [address]([facility]) OUTPATIENT [id number] go/no pills initial BRYN RITCHIE 04/17 Released w/o Limitations [place] [address]([facility]ior [facility] d) [facility], [place] [address]([facility]) OUTPATIENT [id number] follow up KVNG CAMPO 04/18 Released w/o Limitations [place] [address](Nancy yangAracely NAVARRO) [facility] [address]([facility]) OUTPATIENT [id number] f/u ground testing medicai RITCHIE Cantu 04/30 Released w/o Limitations [place] [address]([facility] MarcellusDior fuentes d) [facility] [address]([facility]) OUTPATIENT [id number] wart f/u KVNG CAMPO 05/08 Released w/o Limitations [place] [address](Nancy yangAracely NAVARRO) [facility]) OUTPATIENT [id number] Notes Entered by: JT IGLESIAS 15 Dec 2017 1127 ------- ------- ------- ------- -- Annual Audiogr am HERNAN IGLESIAS 12/15 Released w/o Limitations [employer]([facility]) [facility] [employer] [facility]) OUTPATIENT [id number] mass [place] Mcmahan 12/21 Released w/o Limitations [facility]) [employer]([facility]) OUTPATIENT [id number] ground testing COMFORT ABBASI 12/29 Released w/o Limitations [facility] Medicin [facility]) [employer](Idi t Medicine) OUTPATIENT [id number] Notes Entered by: SOLO SHAH 13 Apr 2018 0725 ------- ------- ------- ------- -- flying BRENDAN Flores 04/13 Released w/o Limitations [facility](F light Medicin e) [facility]) TELE CONSULT [id number] Notes Entered by: ORTEGA DA SILVA 29 Aug 2018 1134 ------- ------- ------- ------- -- CSSP: Sore throat EVER SAMUELS 08/29 Other Not Elsewhere [facility]ified [facility](F light Medicin e) [facility]) OUTPATIENT [id number] Notes Entered by: ARABELLA FLORES 29 Aug 2018 1152 ------- ------- ------- ------- -- CSSP: Sore Throat ARABELLA AGARWAL 08/29 Released w/o Limitations [facility] Medicin [facility]) [employer]([facility]) OUTPATIENT [id number] 4 FLIGHT JATINDER SANCHEZ 11/28 Released w/o Limitations [facility]) [employer](Hea ring Conservat ion) OUTPATIENT [id number] Notes Entered by: JT IGLESIAS 27 Dec 2018 1044 ------- ------- ------- ------- -- Annual Audiogr am HERNAN IGLESIAS 12/27 Released w/o Limitations [facility] [employer] [facility]aring [facility]ion) [facility] [address](Ashok d_Flight_ Med Team A) OUTPATIENT [id number] 1 fire ant bites JC SKY 04/09 Released w/o Limitations [facility] [place] [address](R eid_Fli ght_Med Team A) [facility] [employer] [facility]) OUTPATIENT [id number] 6 R Foot Pain MICHAELMARY REIS 04/23 Released w/o Limitations [facility]) [facility]) OUTPATIENT [id number] 5 LEXA PICKARD 01/20 [facility] 8344R-[id number] AMDS Between Visit [id number] 02/27 Discharge Disposition: Home or Self Care 8344R-4 39 AMDS 8344R-439 AMDS Outpatient [id number] RAMÍREZ [facility] 03/06 Discharge Disposition: Home or Self Care 8344R-4 39 AMDS 8344R-439 AMDS Outpatient [id number] RAMÍREZ [facility] 03/07 Discharge Disposition: Home or Self Care 8344R-4 39 AMDS Procedures Combined list of: 1) Procedures from Department of Veterans Affairs facilities going back up to thelast 18 months, not all VA non-surgical procedures are included; 2) All procedures from the Department of Defense facilities. Procedure Procedure Type Code Date Perfomer Comments Sourc e No data available for this section Ambulato ry Pharmacy Threshold Audiogram (Pure Tone) Automated Threshold Audiogram (Pure Tone) Automated 0208T 019 HERNAN IGLESIAS [facility] Threshold Audiogram (Pure Tone) Threshold Audiogram (Pure Tone) [id number] JATINDER RENAE [facility] Screening Test Of Visual Acuity, Quantitative, Bilateral Screening Test Of Visual Acuity, Quantitative, Bilateral [id number] JATINDER RENAE [place] Non-Physician Phone Call To Patient/Provider Brief (5-10min) Non-Physician Phone Call To Patient/Provid er Brief (5-10min) [id number] EVER SAMUELS Threshold Audiogram (Pure Tone) Threshold Audiogram (Pure Tone) 96148 018 [place] CURRAN Screening Test Of Visual Acuity, Quantitative, Bilateral Screening Test Of Visual Acuity, Quantitative, Bilateral 01261 018 [place] CUR[place]AN Extensive Color Vision Testing Extensive Color Vision Testing 80240 018 [place] Threshold Audiogram (Pure Tone) Automated Threshold Audiogram (Pure Tone) Automated 0208T HERNAN IGLESIAS Destruct Of Benign Lesion By Any Method Second Through 14 Destruct Of Benign Lesion By Any Method Second Through 14 KVNG CAMPO Destruction Of Benign Lesion By Any Method One Lesion Destruction Of Benign Lesion By Any Method One Lesion KVNG CAMPO I reviewed the risks, benefits, indications, and alternatives to liquid nitrogen therapy. The patient verbalized understandings of the risks involved and gave verbal consent requesting treatment with the liquid nitrogen. Used 5-10 sec cycle to each lesion DoD Destruct Of Benign Lesion By Any Method Second Through 14 Destruct Of Benign Lesion By Any Method Second Through 14 KVNG LEWIS Destruction Of Benign Lesion By Any Method One Lesion Destruction Of Benign Lesion By Any Method One Lesion KVNG CAMPO BRIEF EMOTIONAL/BEHAVIO RAL ASSESSMENT (EG, DEPRESSION INVENTORY, ATTENTION-DEFICIT /HYPERACTIVITY DISORDER [ADHD] SCALE), WITH SCORING AND DOCUMENTATION, PER STANDARDIZED INSTRUMENT DoD DESTRUCTION (EG, LASER SURGERY, ELECTROSURGERY, CRYOSURGERY, CHEMOSURGERY, SURGICAL CURETTEMENT), OF BENIGN LESIONS OTHER THAN SKIN TAGS OR CUTANEOUS VASCULAR PROLIFERATIVE LESIONS; UP TO 14 LESIONS DoD DESTRUCTION (EG, LASER SURGERY, ELECTROSURGERY, CRYOSURGERY, CHEMOSURGERY, SURGICAL CURETTEMENT), OF BENIGN LESIONS OTHER THAN SKIN TAGS OR CUTANEOUS VASCULAR PROLIFERATIVE LESIONS; UP TO 14 LESIONS DoD PURE TONE AUDIOMETRY (THRESHOLD), AUTOMATED; AIR ONLY [facility] ADMINISTRATION OF PATIENT-FOCUSED HEALTH RISK ASSESSMENT INSTRUMENT (EG, HEALTH HAZARD APPRAISAL) WITH SCORING AND DOCUMENTATION, PER STANDARDIZED INSTRUMENT [facility] INFECTIOUS AGENT ANTIGEN DETECTION BY IMMUNOASSAY WITH DIRECT OPTICAL (IE, VISUAL) OBSERVATION; STREPTOCOCCUS, GROUP A [facility] TELE ASSESS & MGT SRV PROV QUAL NONPHYS HLTH CARE PRO TO EST PAT,PARENT,GUARD NOT ORIG REL ASSESS & MGT SRV PROV W/IN PREV 7 DAYS NOR LEAD ASSESS & MGT SRV/PX W/IN NXT 24 HR/SOON APT;5-10 MIN MED DIS [facility] ADMINISTRATION OF PATIENT-FOCUSED HEALTH RISK ASSESSMENT INSTRUMENT (EG, HEALTH HAZARD APPRAISAL) WITH SCORING AND DOCUMENTATION, PER STANDARDIZED INSTRUMENT [facility] PURE TONE AUDIOMETRY (THRESHOLD), AUTOMATED; AIR ONLY [facility] Social History Combined list of available smoking, tobacco, and other social history from Department of Defense and Veterans Affairs facilities. Social History Type Response Date Comment Sourc e Sex Representation Male (finding) 07/15/2022 Un known Organization Sexual Orientation Ambula tory Pharmacy Gender identity Ambulator y Pharmacy This section is an empty social history section. DoD Assessment and Plan Combined list of future care activities from Department of Defense and Veterans Affairs facilities (e.g., assessment and plan notes, appointments, orders, and referrals). Additional future care activities may be listed in the Plan of Care section. Result Assessment and Plan Date Source Assessment and Plan Extracted from:Title : Fly PHA Author: LUCIA NAGEL Date: 03/07/24 History of Refractive Surgery- _? Contact Lenses- _? Enrolled in Contact Lens Program- _? Gas Mask Inserts ordered- _? Current SRX on file- _? DVA (uncorrected) OD: 20/20 OS: 20/20 D[facility] (Corrected) OD: 20/ OS: 20/ NVA (uncorrected) OD: 20/20 OS: 20/20 [facility] (Corrected) OD: 20/ OS: 20/ Phorias: ESO _0_ EXO _2__ RH __0_ LH _0__ Depth Perception _? Pass through _F__ IOP OD: 17 OS: 18 Time: 1315 Optometry findings meet standards- _? Vital signs: Ht: 69 Wt: 165 BP: 120/74 HR: 58 No medications, no allergies. Addendum by RAMÍREZ RODAS MD on March 07, 2024 16:16 EDT ANNUAL PERIODIC HEALTH ASSESSMENT I. 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 Last Name: JESUS 2. First Name: TERE 3. Middle Name: LANCE 4. Assessment Date: 5. : 6. Age: 33 7. Gender: M 8. [employer] ID Number: [id number] 9. Service Branch: [employer] 10. 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 Unit Name: [employer] 14. Duty Station/Location: [place] 15. UIC: [id number] 16. Is this your first Periodic Health Assessment (PHA)?: N 17. Are you enrolled in a secure messaging system with your health care provider?: 18. Current contact information: Preferred Method: Email 1 DSN: [id number] Day Time Phone: [phone] Night Time Phone: [phone] Email 1: [email or web address] Email 2: Address: [place] City: [place] State: [place] Zip Code: [address] 19. Point of contact who can always reach you: Name: Yolanda Levy Phone 1: [phone] Phone 2: EMAIL: Address: City: State: Zip Code: II. DEPLOYMENT INFORMATION (DEP) 1. [ 0 ] Total number of deployments in the PAST 5 YEARS 4. [ N ] Are you going to deploy within the NEXT 120 DAYS? III. 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 [ Yes ] Does your specialty require an operational duty physical exam? 4. [ No ] Are you currently enrolled in a medical surveillance/occupational health program?: No IV. MEDICAL CONDITIONS (ANITRA): 1. Since your last PHA, have you experienced any of the following health conditions, and if so, what is your status? [ ] Conditions with no medical care [ ] Conditions with medical care, but no longer under treatment [ ] Conditions with medical care, and NOW under treatment 2. Since your last PHA, have you experienced any of the following health conditions, and if so, what is your status? [ ] Conditions with no medical care [ ] Conditions with medical care, but no longer under treatment [ ] Conditions with medical care, and NOW under treatment 3. For any condition marked YES in question 1 or 2, are you currently on any profile or limited duty for that condition? [ ] Conditions 4. [ Yes ] Have you been based or stationed at a location where an open burn pit was used? 5. [ Not Sure ] Have you been exposed to toxic airborne chemicals or other airborne contaminants? 6. [ No ] Are you enrolled in the Airborne Hazards and Open Burn Pit Registry? 7. [ Y ] Federal law requires eligible members to enroll in the Airborne Hazards and Open Burn Pit Registry or opt-out. If eligble, choose one: 8. Have you had any surgery since your last PHA?: Yes 9. What was the condition(s) for which you had surgery and the type of surgery? 9.a. Condition: benign mole removed on head 5.a.1 Type of Surgery: cosmetic 9.b. Condition: 5.b.1 Type of Surgery: 9.c. Condition: 5.c.1 Type of Surgery: 10.a. [ No ] Since your last PHA, has a health care provider recommended surgery(s) that you have not had? 11.a. [ No ] Do you currently require hearing aids, special medical supplies, CPAP, adaptive equipment, assistive technology devices, and/or other special accommodations? 12.a. [ No ] Do you have a waiver or profile for any part of your Service's physical fitness test? 13.a. [ No ] Do you have any problems wearing a gas mask, ballistic helmet, body armor, and/or chemical/biological protective garments? 14.a. [ No ] Have you ever been told by a health care provider that you SHOULD NOT receive an immunization for medical reasons? 15.a. [ No ] Do you have a permanent profile or an Assignment Limitation Code C? 16.a. [ No ] Are you on a temporary profile or limited duty? 17. [ 0 ] During the PAST 2 years, how many times have you been placed on a temporary profile or on limited duty? V. INDIVIDUAL MEDICAL READINESS (IMR) 1. [ No ] Do you have any allergies? 3. [ Not required ] Do you have red medical warning dog tags? 4. [ No ] Do you wear corrective lenses? . BEHAVIORAL HEALTH (MHA) 1. a. [ None ] Over the PAST MONTH, what major life stressors have you experienced that are a cause of significant concern or make it difficult for you to do your work, take care of things at home, or get along with other people (for example, serious conflicts with others, relationship problems, or a legal, disciplinary or financial problem)? 2. a. [ No ] In the PAST YEAR did you receive care for any mental health condition or concern such as, but not limited to post traumatic stress disorder (PTSD), depression, anxiety disorder, alcohol abuse or substance abuse? 3. [ None ] What prescription or over-the counter medications (including herbals/supplements) for sleep, pain, combat stress, or a mental health problem are you CURRENTLY taking? 4. a. [ No ] In the past 12 months, have you gambled? 5. a. [ Monthly or less ] How often do you have a drink containing alcohol? 5. b. [ 1 or 2 ] How many drinks containing alcohol do you have on a typical day when you are drinking? 5. c. [ Less than monthly ] How often do you have six or more drinks on one occasion? 6. Have you ever had any experience that was so frightening, horrible, or upsetting that in the PAST MONTH, you: 6. a. [ No ] Have had nightmares about it or thought about it when you did not want to? 6. b. [ No ] Tried hard not to think about it or went out of your way to avoid situations that remind you of it? 6. c. [ No ] Were constantly on guard, watchful or easily startled? 6. d. [ No ] [place] numb or detached from others, activities, or your surroundings? 6. e. [ Not answered ] [place] guilt or unable to stop blaming yourself or others for the event(s) or any problems the event(s) may have caused? 7. Over the LAST 2 WEEKS, how often have you been bothered by the following problems? 7. a. [ Not at all ] Little interest or pleasure in doing things 7. b. [ Not at all ] Feeling down, depressed, or hopeless 8. [ No ] Would you like to schedule an appointment with a health care provider to discuss any health concern(s)? 9. [ No ] Are you interested in receiving information or assistance for a stress, emotional or alcohol concern? 10. [ No ] Are you interested in receiving assistance for a family or relationship concern? 11. [ No ] Would you like to schedule a visit with a rn school, mental health care provider, or a community support counselor? VII. FAMILY HISTORY AND LIFESTYLE (LIF) 1. [ Excellent ] Overall, how would you rate your health during the PAST MONTH? 2. [ Heart-related conditio ] Member indicates that family members have the following problems 4. The following family members has/had a history of heart-related conditions: High Blood Pressure: Mother, Father, Grandfather Sudden Cardiac : Grandfather high cholestrol: Father, Grandmother, Grandfather 6. [ Yes ] I participate in moderate intensity physical activites at least 2.5 hours, or a combination of moderate and vigorous aerobic activites, for at least 75 minutes per week. 7. In a typical week, I do physical activities specifically designed to STRENGTHEN my muscles: [ 0 ] Day(s) per week 8. [ None ] What prescriptions or wzka-kru-zxlucfu medications are you CURRENTLY taking for health problems on a ROUTINE BASIS? 9. Which of the following products have you taken since your last PHA: None of the above 11. Think about the PAST 30 DAYS. How often did you eat/drink the following foods/beverages? [ 2 servings per day ] Fruits [ 3 to 6 servings per week ] Vegetables [ 3 to 6 servings per week ] Starchy Vegetables [ 3 to 6 servings per week ] Whole Grains [ 3 to 6 servings per week ] Dairy and Calcium Containing Foods [ 1 or 2 servings per week ] Fish [ 1 or 2 servings per week ] Lean Protein [ 1 or 2 servings per week ] Sugar-Sweetened Beverages 12. [ Yes ] Have you had a cholesterol check by a health care transition coordinator within the PAST 5 YEARS? 13.a. In the PAST 30 DAYS, which of the following products have you used on at least one day? None 15. Which of the following best describes your past tobacco use? I have never used tobacco products. 16. [ No ] Are you regularly exposed to secondhand smoke? 17. [ 5 to less than 7 hours ] During the LAST 2 WEEKS, how many hours of sleep did you get on most days? 18. [ No ] During the LAST 2 WEEKS, have you felt impaired or unable to adequately perform due to sleepiness or poor quality sleep? 19. [ No ] Have you had any unexplained weight loss or gain since your last PHA? 20. Member is not at risk for sexually transmitted infections. 22. Since your last PHA, what, if anything, have you and your partner used to keep from getting ? [ Condoms ] I am actively taking steps to prevent , including 23. [ No ] In the last year, have you or your partner had a scare, where you were not trying to get but were worried enough to use a home test? IX. RESERVE COMPONENT (RES) 1. [ No ] Do you have an injury, illness, Or disease which was incurred or aggravated while in a duty status since your last PHA? 4. [ Yes - Other health insurance ] Are you currently coverered under a health insurance policy? 5.a. [No, I have never applied for Worker's Compensation ] Do you have any current physical or mental health limitations related to a Worker's Compensation claim? 6. [ No ] Have you applied for or have you received a VA disability rating? X. OTHER MEDICAL (OTH) 1. [ 1 ] Rate the amount of pain you have had, on average, over the PAST 24 HOURS 2. [ No ] Are you receiving treatment for pain? 3. [ No ] Since your last PHA, have you received care or treatment for any medical and/or mental health condition(s) from a civilian or non- facility? 5. Member acknowledged responsibility for reporting health issues. 7. [ No ] Woud you like to schedule an appointment with a health care provider to discuss any health concerns? XI. SEPARATION AND SENIOR LIVING 1. 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 PART B. RECORD REVIEW AND RECOMMENDATIONS I. RECORD REVIEWER INFORMATION 1. Last Name: REINA 2. First Name: LIVAN 3. Middle Name: Honey 4. Service Branch: [employer] 5. 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 EMAIL: [email or web address] 8. Facility: [facility] 9. Unit: [facility] 10. Address: [address] [place] [address] 11. State: [place] 12. Zip Code: [address] 13. 14. Date Record Review: II. MEDICAL SCREENING 1. [ ] Date of grocery team member's most recent PHA 2. [ 5 feet 9 inches Date: ] grocery team member's most recently documented height 3. [ 160 pounds Date: ] grocery team member's most recently documented weight 4. [ 110/64 Date: ] grocery team member's most recently documented blood pressure reading 5. [ No ] Does the grocery team member have a history of abnormal blood pressure since their last PHA? 6. [ Yes ] Does the grocery team member have a laboratory test of sickle cell trait documented in their permanent medical record? 7. [ ] What is the date of the grocery team member's most recently documented cholesterol test? 9. [ No Active Medications Documented ] List of grocery team member's active medications listed in their permanent medical record 10. [ No ] Is there a discrepancy between the active medication record review and the grocery team member's self-reported list of medications? 11. [ Seen for mole removal 2023 ] List documented significant care the grocery team member has received since their last PHA from a provider OUTSIDE the Health System 12. [ Yes: Seen for mole removal 2023 ] Is there a discrepancy between the grocery team member's list of OUTSIDE care (from [facility]), and the OUTSIDE care found in the record? 13. [ No Inside Care Documented ] List documented significant care the grocery team member has received since their last PHA from a provider INSIDE the Health System 14. Is there documentation in the record for each surgery listed below? benign mole removed on head/cosmetic: Yes 15. [ Not Answered ] Confirm that vaccine exemptions are listed in the medical record for each vaccine listed III. OCCUPATION-SPECIFIC EXAMINATIONS 1. [ ] When was the grocery team member's most recently documented special operational duty physical exam? IV. FAMILY HISTORY AND LIFESTYLE 1. [ Yes ] Does the [id number] reflect the grocery team member's reported family history? VII. INDIVIDUAL MEDICAL READINESS 1. [ No ] Does the grocery team member have an Assignment Limitation Code C? 3. [ Classification: 1 ] Most recently documented dental exam 4. [ Yes ] Is the grocery team member current on all required immunizations in the immunization tracking system? 6. Does the grocery team member have the following laboratory tests documented in their permanent medical record? [ No ] HIV test within the PAST 24 months [ Yes ] G6PD results on file [ Yes ] Blood type and Rh on file [ Yes ] DNA test on file IX. ADDITIONAL RECORD REVIEWER COMMENTS 1. This record review indicates the potential need for provider notification or referral: Provider Notified 2. Additional comments about this record review that need to be forwarded to the [facility] completing PART C: Surgery since last PHA : cosmetic benign mole removal 11/2023 - notes in [facility] Pain scale 1/10 in past 72 hrs No MH concerns. No DLCs. No alcohol concerns. no tobacco use. no medications. no supplements. no other findings in [facility] Date Record Review Completed: PART C. HEALTH CARE PROVIDER I. MENTAL HEALTH ASSESSMENT (MHA) PROVIDER INFORMATION 1. Last Name: RANJAN 2. First Name: RAMÍREZ 3. Middle Name: 4. Service Branch: [employer] 5. 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 EMAIL: [email or web address] 8. Facility: [facility] 9. Unit: [facility] 10. Address: [address] [place] [address] 11. State: [place] 12. Zip Code: [address] 13. Phone: [phone] 14. Date HCP Review initiated: 1. Member marked that they did not have a concern or a difficulty with a major life stressor. 2. Address concerns identified on member questions 2 and 3. History of mental health care: N/A Member's response: Provider's comments: Medications: N/A Member's response: Provider's comments: 3. Member's AUDIT-C screening score was 2. (nothing required) 4. Member did not grey yes on two or more of questions 6a through 6e. 5. Member did not grey More than half the days or nearly every day on question 7a or 7b. 6. Suicide risk evaluation. 6. a. Ask: Over the past month, have you wished you were or wished you could go to sleep and not wake up?: No 6. b. Ask: Have you actually had any thoughts of killing yourself?: No 6. f. 1. Ask: In you lifetime, have you done anything, started to do anything, or prepared to do anything to end your life?: No 6. g. Further risk assessment comments: 7. Member states that they have not had thoughts or concerns over the past month that they might hurt or lose control with someone. 9. Summary of Provider's identified concerns needing referrals: None 11. Comments: 13. Supplemental services recommended/information provided: No supplemental services required Date MHA Certified: III. PERIODIC HEALTH ASSESSMENT (PHA) PROVIDER INFORMATION 1. Last Name: RANJAN 2. First Name: RAMÍREZ 3. Middle Name: 4. Service Branch: [employer] [place] 5. 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 EMAIL: [email or web address] 8. Facility: [facility] 9. Unit: [facility] 10. Address: [address] [place] [address] 11. State: [place] 12. Zip Code: [address] 13. Phone: [phone] 14. Date HCP Review initiated: IV. PERIODIC HEALTH ASSESSMENT PROVIDER RECOMMENDATIONS and REFERRALS 1. Provider concerns with this assessment: No issues or concerns identified V. SUMMARY AND COMMENTS 1. Additional information summarizing findings during the grocery team member assessment: 2. Provider Comments: . INDIVIDUAL MEDICAL READINESS DISPOSITION DETERMINATION ANITRA: Ready DEN: Ready IMM: Ready LAB: Ready ME: Ready IMR Status: Fully Medically Ready VII. SERVICE MEDICAL DEPLOYABILITY EVALUATION INDICATED Based on your review of all documentation, is the grocery team member medically deployable without limitations? Reference Romaine 6490.07 Yes (grocery team member DOES NOT currently have a medical condition that limits deployability) Date PHA Completed: END OF [id number] REPORT Chief Complaint: Member here for annual fly PHA. Patient is able to complete duties required by [employer]. No acute complaints.NO: Fly?waiver. Initial Waiver Date: Waiver Exp Date: EDMUND?jacqueline. Test results reviewed: Audio: Audiogram H-1, no asymmetric hearing loss, no significant threshhold shift Optometry:Meets vision standards for: Near and distant visual acuity, IOP, Depth perception, Phorias EKG:?Not Required PHYSICAL EXAM: HEENT:?Normal Valsalva:?Normal Joints:?Normal Spine:Normal Skin:Normal Neuro:?Normal Lungs:?Normal Heart:?Normal Abdomen:?Normal Comments: Impression: Meets?FCII?medical standards per GLORIA 48-123/MSD. Aeromedical Disposition: No DNIF. DD 2992?signed. No AF469 changes based on this encounter. [employer] Qualified. 10/25/[id number] [facility] Functional Status Combined list of recent functional and cognitive assessments recorded at Department of Defense and Veterans Affairs (VA).VA Functional [place] Measurement (FIM) Scale: 1 = Total Assistance (Subject = 0% +), 2 = Maximal Assistance (Subject = 25% +), 3 = Moderate Assistance (Subject = 50% +), 4 = Minimal Assistance (Subject = 75% +), 5 = Supervision, 6 = Modified [place] (Device), 7 = Complete [place] (Timely, Safely). Assessment Date/Time Source Assessment Type Assessment Skill Assessment Score Assessment Details No data available for this section
== END 2024-10-25 16:48 | disposition home or self-care (01) ==
LOC: HO.HMCC 15:52
PROVIDERS: PCP Nurse Practitioner Family; Visit Provider Nurse Practitioner Family
DX: Z00.00 Encounter for general adult medical examination without abnormal findings (principal)

== ENCOUNTER → 2024-10-25 15:51 | Outpatient (BNVA) | payer BC, SELFPAY | PROVIDERS: PCP Nurse Practitioner Family; Visit Provider Nurse Practitioner Family | DX: Z00.00 Encounter for general adult medical examination without abnormal findings (principal) | CPT/HCPCS: 96127 ==